=== PATIENT | female | born 1970 | race Caucasian/White ===

== ENCOUNTER 2016-06-06 12:28 | Emergency (ER) | payer OTHER ==
--- NOTE | 2016-06-06 13:15 | DIAGNOSTIC IMAGING REPORT ---
PROCEDURE: XR SHOULDER 2 OR MORE VW-LEFT INDICATION: PAIN TECHNIQUE: Three views. COMPARISON: None. FINDINGS: There is 0.5 mm osseous density overlying the lower glenoid (dystrophic calcification) which may be degenerative and incidental. Osseous structures and joint spaces are otherwise normal. IMPRESSION: 1. Minor degenerative changes. 2. Otherwise negative left shoulder. 3. Findings discussed with Dr. Silveira.
--- NOTE | 2016-06-06 13:28 | ED ORDER SUMMARY ---
..... Patient: LIS MARKS OrderSheet [facility] VisitID: [id number] [address] [place] [address] 45y, F Registration Date/Time: 06/06/2016 ORDER SHEET Weight: 49.4 kg (stated) Allergies: Codeine, Sulfa Antibiotics GENERAL ORDERS: Shoulder 2V or more Left Urgent (12:39 06/06/2016 Leilani Hope per protocol) ([facility] 12:41 Rickey Tech1) (12:57 Leilani Singh.Elisa.) MEDICATION ORDERS: IV FLUIDS: ORDER SHEET NOTES: [Electronically signed by Zeeshan Mcqueen R.N. (13:40 06/06/2016)] [Electronically signed by Deondre Silveira DO (17:33 06/06/2016)] [Electronically locked/signed by Zeeshan Mcqueen R.N. (13:40 06/06/2016)]
--- NOTE | 2016-06-06 13:28 | ED CLINICAL REPORT ---
Clinical Report - Physicians/Mid Levels [facility] [address] [place] [address] 06/06/2016 12:29 Patient: LIS MARKS Time Seen: 12:48. Arrived- By private vehicle. Historian- patient. HISTORY OF PRESENT ILLNESS Chief Complaint: UPPER EXTREMITY PAIN and NECK PAIN; PAIN IN THE LEFT SHOULDER. Severity is described as being moderate in degree. The quality is noted to be "pain". It is described as radiating to the left upper arm. Modifying factors- worsened by movement. Made better by rest. This started about 2 1/2 weeks ago and is still present. It was gradual in onset and has been waxing/waning. Symptoms located in the area of the left shoulder. No chest pain, difficulty breathing, swelling, sensory loss or motor loss. She has not had redness. Repetitive hand use at work. Patient notes the possibility of an injury. Mechanism of injury- (repetitive movements). Occurred at home and work. Similar symptoms previously: Recent medical care: Not recently seen/assessed. REVIEW OF SYSTEMS No fever, chills, headache, sore throat or cough. No skin rash, abdominal pain, nausea, vomiting or diarrhea. No black stools, difficulty with urination, urinary frequency or hematuria. The patient has had moderate neck pain (left trapezius area). No motor weakness, sensory loss, radiation to the left arm or symptom related to bladder or bowel dysfunction. All systems otherwise negative, except as recorded above. PAST HISTORY The patient's dominant hand is the right. Dysfunctional uterine bleeding. Surgeries: Laparoscopy (for endometriosis). Medications: Control Pills. Allergies: Codeine.(vomiting) Sulfa Antibiotics. SOCIAL HISTORY Smoker- current status unknown. Occasional alcohol use. History of drug use: marijuana. Is a local resident. Patient is employed. 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 ADDITIONAL NOTES The nursing notes have been reviewed. PHYSICAL EXAM Vital Signs: 06/06/2016 12:34 BP: 109/67. HR: 77. RR: 16. O2 saturation: 100%. Temp: 98.7 F. Pain level now: 11/27. Appearance: Alert. Oriented X3. Patient in moderate distress. Eyes: Eyes normal inspection. No pale conjunctivae or scleral icterus. ENT: Pharynx normal. Neck: Normal inspection. Pain in the lower posterior neck upon movement (left trapezius and left inferior cervical muscles). Neck supple. No meningeal signs, lymphadenopathy or thyromegaly. CVS: Normal heart rate and rhythm. Heart sounds normal. Respiratory: No respiratory distress. Breath sounds normal. Abdomen: Soft and nontender. No organomegaly. Back: Normal inspection. Skin: Skin intact. No cyanosis. Skin warm and dry. Normal skin color. Normal skin turgor. Skin not cool on palpation. No skin rash or diaphoresis. Extremities: Upper extremities normal to inspection. No upper extremity edema. No signs of infection present in the upper extremities. No upper extremity pulse deficit present. Upper extremity capillary refill not prolonged. No upper extremity edema. Left shoulder: moderate tenderness located in the anterior, posterior, medial and lateral aspect of the shoulder. Neurovascular intact distally. No erythema, swelling, laceration, abrasion or ecchymosis. No puncture wound, foreign body or deformity. No joint effusion or limitation in ROM. Extremities otherwise negative. Neuro: Oriented X 3. No motor deficit. No weakness. No sensory deficit. No sensory deficit. LABS, X-RAYS, AND EKG Lt Shoulder X-ray: (IMPRESSION: 1. Minor degenerative changes. 2. Otherwise negative left shoulder.). Technique: good. The X-rays were independently viewed by me, interpreted by the radiologist and discussed with the radiologist. Pulse Oximetry: 06/06/2016 12:34 O2 saturation: 100%. (FIO2 - room air). Interpretation: normal. PROGRESS AND PROCEDURES Course of Care: Not c/w cervical radiculopathy. Clear shoulder area tenderness and left trapezius muscle tenderness. No signs of infection. No indication of cord compression or signs of spinal / epidural infectious process / discitis "Allergy" to codeine was nausea / vomiting - no allergy only GI side effects. Patient/family counseled. Old ED records reviewed. Disposition: Discharged. Condition: stable. CLINICAL IMPRESSION Tendonitis in the left shoulder. Chronic substance abuse- tobacco (cigarettes), marijuana. No intoxication or anxiety. Acute cervical strain. INSTRUCTIONS Apply ice. Elevate affected areas above chest level. Limit lifting (with the left upper extremity until better). Do not work for two days. Do not smoke. Seek medical help to quit smoking. (Gentle range of motion exercises as described). Warnings: Further evaluation is necessary in order to conduct further tests (you may need an MRI and / or physical therapy if not improving). It is very important to follow up with a physician. CONTROLLED SUBSTANCE WARNINGS. GENERAL WARNINGS: Return or contact your physician immediately if your condition worsens or changes unexpectedly, if not improving as expected, or if other problems arise. Your Current Medications: CONTINUE TAKING THE FOLLOWING MEDICATIONS: Control Pills*. Prescription Medications: Hydrocodone/APAP 5mg / 325mg: take 1 orally every 8 hours as needed for pain. Dispense ten (10). No refill. Ibuprofen 600mg tablets: take 1 tablet orally every 8 hours as needed for pain. Dispense thirty (30). No refills. OTC Medications: Acetaminophen (available over the counter): take according to label instructions. Follow-up: Follow up with your doctor at [facility] in about two days. (Electronically signed by Deondre Silveira DO 06/06/2016 17:33)
--- NOTE | 2016-06-06 13:28 | ED CLINICAL REPORT ---
Clinical Report - Physicians/Mid Levels [facility] [address] [place] [address] 06/06/2016 12:29 Patient: LIS MARKS Time Seen: 12:48. Arrived- By private vehicle. Historian- patient. HISTORY OF PRESENT ILLNESS Chief Complaint: UPPER EXTREMITY PAIN and NECK PAIN; PAIN IN THE LEFT SHOULDER. Severity is described as being moderate in degree. The quality is noted to be "pain". It is described as radiating to the left upper arm. Modifying factors- worsened by movement. Made better by rest. This started about 2 1/2 weeks ago and is still present. It was gradual in onset and has been waxing/waning. Symptoms located in the area of the left shoulder. No chest pain, difficulty breathing, swelling, sensory loss or motor loss. She has not had redness. Repetitive hand use at work. Patient notes the possibility of an injury. Mechanism of injury- (repetitive movements). Occurred at home and work. Similar symptoms previously: Recent medical care: Not recently seen/assessed. REVIEW OF SYSTEMS No fever, chills, headache, sore throat or cough. No skin rash, abdominal pain, nausea, vomiting or diarrhea. No black stools, difficulty with urination, urinary frequency or hematuria. The patient has had moderate neck pain (left trapezius area). No motor weakness, sensory loss, radiation to the left arm or symptom related to bladder or bowel dysfunction. All systems otherwise negative, except as recorded above. PAST HISTORY The patient's dominant hand is the right. Dysfunctional uterine bleeding. Surgeries: Laparoscopy (for endometriosis). Medications: Control Pills. Allergies: Codeine.(vomiting) Sulfa Antibiotics. SOCIAL HISTORY Smoker- current status unknown. Occasional alcohol use. History of drug use: marijuana. Is a local resident. Patient is employed. 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 ADDITIONAL NOTES The nursing notes have been reviewed. PHYSICAL EXAM Vital Signs: 06/06/2016 12:34 BP: 109/67. HR: 77. RR: 16. O2 saturation: 100%. Temp: 98.7 F. Pain level now: 11/27. Appearance: Alert. Oriented X3. Patient in moderate distress. Eyes: Eyes normal inspection. No pale conjunctivae or scleral icterus. ENT: Pharynx normal. Neck: Normal inspection. Pain in the lower posterior neck upon movement (left trapezius and left inferior cervical muscles). Neck supple. No meningeal signs, lymphadenopathy or thyromegaly. CVS: Normal heart rate and rhythm. Heart sounds normal. Respiratory: No respiratory distress. Breath sounds normal. Abdomen: Soft and nontender. No organomegaly. Back: Normal inspection. Skin: Skin intact. No cyanosis. Skin warm and dry. Normal skin color. Normal skin turgor. Skin not cool on palpation. No skin rash or diaphoresis. Extremities: Upper extremities normal to inspection. No upper extremity edema. No signs of infection present in the upper extremities. No upper extremity pulse deficit present. Upper extremity capillary refill not prolonged. No upper extremity edema. Left shoulder: moderate tenderness located in the anterior, posterior, medial and lateral aspect of the shoulder. Neurovascular intact distally. No erythema, swelling, laceration, abrasion or ecchymosis. No puncture wound, foreign body or deformity. No joint effusion or limitation in ROM. Extremities otherwise negative. Neuro: Oriented X 3. No motor deficit. No weakness. No sensory deficit. No sensory deficit. LABS, X-RAYS, AND EKG Lt Shoulder X-ray: (IMPRESSION: 1. Minor degenerative changes. 2. Otherwise negative left shoulder.). Technique: good. The X-rays were independently viewed by me, interpreted by the radiologist and discussed with the radiologist. Pulse Oximetry: 06/06/2016 12:34 O2 saturation: 100%. (FIO2 - room air). Interpretation: normal. PROGRESS AND PROCEDURES Course of Care: Not c/w cervical radiculopathy. Clear shoulder area tenderness and left trapezius muscle tenderness. No signs of infection. No indication of cord compression or signs of spinal / epidural infectious process / discitis "Allergy" to codeine was nausea / vomiting - no allergy only GI side effects. Patient/family counseled. Old ED records reviewed. Disposition: Discharged. Condition: stable. CLINICAL IMPRESSION Tendonitis in the left shoulder. Chronic substance abuse- tobacco (cigarettes), marijuana. No intoxication or anxiety. Acute cervical strain. INSTRUCTIONS Apply ice. Elevate affected areas above chest level. Limit lifting (with the left upper extremity until better). Do not work for two days. Do not smoke. Seek medical help to quit smoking. (Gentle range of motion exercises as described). Warnings: Further evaluation is necessary in order to conduct further tests (you may need an MRI and / or physical therapy if not improving). It is very important to follow up with a physician. CONTROLLED SUBSTANCE WARNINGS. GENERAL WARNINGS: Return or contact your physician immediately if your condition worsens or changes unexpectedly, if not improving as expected, or if other problems arise. Your Current Medications: CONTINUE TAKING THE FOLLOWING MEDICATIONS: Control Pills*. Prescription Medications: Hydrocodone/APAP 5mg / 325mg: take 1 orally every 8 hours as needed for pain. Dispense ten (10). No refill. Ibuprofen 600mg tablets: take 1 tablet orally every 8 hours as needed for pain. Dispense thirty (30). No refills. OTC Medications: Acetaminophen (available over the counter): take according to label instructions. Follow-up: Follow up with your doctor at [facility] in about two days. (Electronically signed by Deondre Silveira DO 06/06/2016 17:33)
--- NOTE | 2016-06-06 13:28 | ED NURSING NOTES ---
Clinical Report - Nurses [facility] [address] [place] [address] 06/06/2016 12:29 [id number] Triage time 12:35. Acuity: LEVEL 4. Chief Complaint: LEFT UPPER EXTREMITY PAIN. 12:36 06/06/16. 12:36 06/06/16. Alert. No acute distress. ( Left neck, down left shoulder, down left arm pain. Possible injury pt is unsure. This pain is getting progressively worse.). SEPSIS SCREEN: Sepsis Screen. Negative (no infection suspected/documented). VALERIA COMA SCORE: [place] Coma Scale: 15- eyes open spontaneously (4); best verbal response- oriented x 4 (5); best motor response- obeys commands (6). --12:39 Zeeshan Mcqueen R.N. 12:34 06/06/16. BP: 109/67. HR: 77. RR: 16. O2 saturation: 100%. Temp: 98.7 F (oral). Pain level now: 11/27. --12:39 Zeeshan Mcqueen R.N. Weight: 49.4 kg stated. Height/Length: 62 inches Per Patient. BMI: 19.9. --12:36 Zeeshan Mcqueen R.N. Medications Control Pills. --12:40 Zeeshan Mcqueen R.N. The following entry was struck by Zeeshan Mcqueen R.N., 12:40 (06/06/16) Reason - other. <<STRICKEN ENTRY-- None. --12:37 Zeeshan Mcqueen R.N. --END STRIKE>>. Medication/allergy information source: the patient. --12:39 Zeeshan Mcqueen R.N. Allergies Codeine.(vomiting) --12:37 Zeeshan Mcqueen R.N. Sulfa Antibiotics. --12:37 Zeeshan Mcqueen R.N. History Arrived by private vehicle. Historian: patient. Accompanied by family. Primary physician (NONE). 12:36 06/06/16. An injury may have occurred. This occurred (Last week). 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 PAST MEDICAL HX: Tetanus status: up-to-date. Immunizations not up to date. SOCIAL HX: Current every day heavy tobacco smoker (cigarette)- less than 1 pack per day. Occasional alcohol use. History of drug use: marijuana. No infectious disease exposure. ABUSE ASSESSMENT: No report of abuse. FALL RISK ASSESSMENT: Fall risk assessment completed. No fall risk identified. NUTRITIONAL RISK ASSESSMENT: The nutritional risk assessment revealed no deficiencies. FUNCTIONAL ASSESSMENT: Functional assessment: no impairments noted. LEARNING NEEDS ASSESSMENT: The learning needs assessment revealed no barriers. SKIN INTEGRITY ASSESSMENT: Skin integrity risk assessment completed. No skin integrity risk identified. --12:39 Zeeshan Mcqueen R.N. PAST MEDICAL HX: Last normal menstrual period- MAY 04-Started, Ended MAY 04. --12:41 Zeeshan Mcqueen R.N. PROBLEMS: Gastroenteritis. Diarrhea. Abdominal Pain. Vomiting. UTI - Urinary Tract Infection. Immunizations. Kidney Infection. Endometriosis. Dental Pain. --12:37 Zeeshan Mcqueen R.N. ADDITIONAL SURGERIES: Endometriosis . Laparoscopy. --12:37 Zeeshan Mcqueen R.N. Assessment 12:36 06/06/16. --12:39 Zeeshan Mcqueen R.N. Interventions 12:36 06/06/16. 12:36 06/06/16. ID and allergy band on patient. To treatment room. --12:39 Zeeshan Mcqueen R.N. PHYSICAL ASSESSMENT 12:38 06/06/16. Ambulatory to room. GENERAL / NEURO / PSYCH: Oriented X 4. Alert. Appears in pain. EXTREMITIES: Extremities do not exhibit normal ROM. Neuro-vascular status intact to the extremity. No upper extremity edema. Left shoulder: tenderness. Left arm: tenderness. SKIN: Skin is warm and dry. --12:38 Zeeshan Mcqueen R.N. NURSING PROGRESS NOTES 12:39 06/06/16. The plan of care for this patient has been created. Extremity elevated. Neuro-vascular extremity check. Patient gowned. Reassurance given. Two patient identifiers checked. Call light placed in reach. Side rails up x 2. Bed placed in lowest position. Brakes of bed on. Brakes of chair on. --12:39 Zeeshan Mcqueen R.N. 12:39 06/06/16. Patient ready for evaluation- chart flagged and notification provided. --12:39 Zeeshan Mcqueen R.N. 12:59 06/06/16. ( Shoulder x-ray completed). --12:59 Zeeshan Mcqueen R.N. 13:02 06/06/16. ( Ice pack given to patient for left shoulder). --13:02 Zeeshan Mcqueen R.N. DISPOSITION / DISCHARGE 13:32 06/06/16. Condition at departure: improved. The goals identified in the patient's plan of care were met. No learning barriers present. Discharge instructions provided and reviewed with the patient. Reviewed warnings. Reviewed medication(s). Treatments reviewed. Patient verbalized understanding. Written instructions provided in Thai. The patient was discharged by the physician. She was discharged home and accompanied by family. She left the Emergency Department ambulatory and via private vehicle. Family member driving. FALL RISK ASSESSMENT: Fall risk assessment completed. No fall risk identified. --13:32 Zeeshan Mcqueen R.N. 13:31 06/06/16. BP: 113/72. HR: 80. RR: 14. O2 saturation: 100% on room air. Temp: 98.1 F (oral). --13:32 Zeeshan Mcqueen R.N. 13:32 06/06/16. Departure time: 13:32. --13:32 Zeeshan Mcqueen R.N. Locked/Released at 06/06/2016 13:40 by Zeeshan Mcqueen R.N.
--- NOTE | 2016-06-06 13:28 | ED ORDER SUMMARY ---
..... Patient: LIS MARKS OrderSheet [facility] VisitID: [id number] [address] [place] [address] 45y, F Registration Date/Time: 06/06/2016 ORDER SHEET Weight: 49.4 kg (stated) Allergies: Codeine, Sulfa Antibiotics GENERAL ORDERS: Shoulder 2V or more Left Urgent (12:39 06/06/2016 Leilani Hope per protocol) ([facility] 12:41 Rickey Tech1) (12:57 Leilani Singh.Elisa.) MEDICATION ORDERS: IV FLUIDS: ORDER SHEET NOTES: [Electronically signed by Zeeshan Mcqueen R.N. (13:40 06/06/2016)] [Electronically signed by Deondre Silveira DO (17:33 06/06/2016)] [Electronically locked/signed by Zeeshan Mcqueen R.N. (13:40 06/06/2016)]
--- NOTE | 2016-06-06 13:28 | ED NURSING NOTES ---
Clinical Report - Nurses [facility] [address] [place] [address] 06/06/2016 12:29 [id number] Triage time 12:35. Acuity: LEVEL 4. Chief Complaint: LEFT UPPER EXTREMITY PAIN. 12:36 06/06/16. 12:36 06/06/16. Alert. No acute distress. ( Left neck, down left shoulder, down left arm pain. Possible injury pt is unsure. This pain is getting progressively worse.). SEPSIS SCREEN: Sepsis Screen. Negative (no infection suspected/documented). VALERIA COMA SCORE: [place] Coma Scale: 15- eyes open spontaneously (4); best verbal response- oriented x 4 (5); best motor response- obeys commands (6). --12:39 Zeeshan Mcqueen R.N. 12:34 06/06/16. BP: 109/67. HR: 77. RR: 16. O2 saturation: 100%. Temp: 98.7 F (oral). Pain level now: 11/27. --12:39 Zeeshan Mcqueen R.N. Weight: 49.4 kg stated. Height/Length: 62 inches Per Patient. BMI: 19.9. --12:36 Zeeshan Mcqueen R.N. Medications Control Pills. --12:40 Zeeshan Mcqueen R.N. The following entry was struck by Zeeshan Mcqueen R.N., 12:40 (06/06/16) Reason - other. <<STRICKEN ENTRY-- None. --12:37 Zeeshan Mcqueen R.N. --END STRIKE>>. Medication/allergy information source: the patient. --12:39 Zeeshan Mcqueen R.N. Allergies Codeine.(vomiting) --12:37 Zeeshan Mcqueen R.N. Sulfa Antibiotics. --12:37 Zeeshan Mcqueen R.N. History Arrived by private vehicle. Historian: patient. Accompanied by family. Primary physician (NONE). 12:36 06/06/16. An injury may have occurred. This occurred (Last week). 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 PAST MEDICAL HX: Tetanus status: up-to-date. Immunizations not up to date. SOCIAL HX: Current every day heavy tobacco smoker (cigarette)- less than 1 pack per day. Occasional alcohol use. History of drug use: marijuana. No infectious disease exposure. ABUSE ASSESSMENT: No report of abuse. FALL RISK ASSESSMENT: Fall risk assessment completed. No fall risk identified. NUTRITIONAL RISK ASSESSMENT: The nutritional risk assessment revealed no deficiencies. FUNCTIONAL ASSESSMENT: Functional assessment: no impairments noted. LEARNING NEEDS ASSESSMENT: The learning needs assessment revealed no barriers. SKIN INTEGRITY ASSESSMENT: Skin integrity risk assessment completed. No skin integrity risk identified. --12:39 Zeeshan Mcqueen R.N. PAST MEDICAL HX: Last normal menstrual period- MAY 04-Started, Ended MAY 04. --12:41 Zeeshan Mcqueen R.N. PROBLEMS: Gastroenteritis. Diarrhea. Abdominal Pain. Vomiting. UTI - Urinary Tract Infection. Immunizations. Kidney Infection. Endometriosis. Dental Pain. --12:37 Zeeshan Mcqueen R.N. ADDITIONAL SURGERIES: Endometriosis . Laparoscopy. --12:37 Zeeshan Mcqueen R.N. Assessment 12:36 06/06/16. --12:39 Zeeshan Mcqueen R.N. Interventions 12:36 06/06/16. 12:36 06/06/16. ID and allergy band on patient. To treatment room. --12:39 Zeeshan Mcqueen R.N. PHYSICAL ASSESSMENT 12:38 06/06/16. Ambulatory to room. GENERAL / NEURO / PSYCH: Oriented X 4. Alert. Appears in pain. EXTREMITIES: Extremities do not exhibit normal ROM. Neuro-vascular status intact to the extremity. No upper extremity edema. Left shoulder: tenderness. Left arm: tenderness. SKIN: Skin is warm and dry. --12:38 Zeeshan Mcqueen R.N. NURSING PROGRESS NOTES 12:39 06/06/16. The plan of care for this patient has been created. Extremity elevated. Neuro-vascular extremity check. Patient gowned. Reassurance given. Two patient identifiers checked. Call light placed in reach. Side rails up x 2. Bed placed in lowest position. Brakes of bed on. Brakes of chair on. --12:39 Zeeshan Mcqueen R.N. 12:39 06/06/16. Patient ready for evaluation- chart flagged and notification provided. --12:39 Zeeshan Mcqueen R.N. 12:59 06/06/16. ( Shoulder x-ray completed). --12:59 Zeeshan Mcqueen R.N. 13:02 06/06/16. ( Ice pack given to patient for left shoulder). --13:02 Zeeshan Mcqueen R.N. DISPOSITION / DISCHARGE 13:32 06/06/16. Condition at departure: improved. The goals identified in the patient's plan of care were met. No learning barriers present. Discharge instructions provided and reviewed with the patient. Reviewed warnings. Reviewed medication(s). Treatments reviewed. Patient verbalized understanding. Written instructions provided in Bots[place]an. The patient was discharged by the physician. She was discharged home and accompanied by family. She left the Emergency Department ambulatory and via private vehicle. Family member driving. FALL RISK ASSESSMENT: Fall risk assessment completed. No fall risk identified. --13:32 Zeeshan Mcqueen R.N. 13:31 06/06/16. BP: 113/72. HR: 80. RR: 14. O2 saturation: 100% on room air. Temp: 98.1 F (oral). --13:32 Zeeshan Mcqueen R.N. 13:32 06/06/16. Departure time: 13:32. --13:32 Zeeshan Mcqueen R.N. Locked/Released at 06/06/2016 13:40 by Zeeshan Mcqueen R.N.
--- NOTE | 2016-06-06 17:33 | ED MAR SUMMARY ---
..... Medication Administration Record [facility] [address] [place], [place] [id number] Patient: LIS MARKS Conrad Palacio Visit ID: [id number] 45y, F Weight: 49.4 kg Height/Length: 62 in BMI: 19.9 ALLERGIES: Sulfa Antibiotics, Codeine
--- NOTE | 2016-06-06 17:33 | ED DISCHARGE INSTRUCTIONS ---
Patient: LIS MARKS General Instructions [facility] VisitID: [id number] [place] [address] 45y, F Registration Date/Time: 06/06/2016 Tendonitis in the left shoulder. Chronic substance abuse- tobacco (cigarettes), marijuana. No intoxication or anxiety. Acute cervical strain. INSTRUCTIONS Apply ice. Elevate affected areas above chest level. Limit lifting (with the left upper extremity until better). Do not work for two days. Do not smoke. Seek medical help to quit smoking. (Gentle range of motion exercises as described). Warnings: Further evaluation is necessary in order to conduct further tests (you may need an MRI and / or physical therapy if not improving). It is very important to follow up with a physician. CONTROLLED SUBSTANCE WARNINGS. GENERAL WARNINGS: Return or contact your physician immediately if your condition worsens or changes unexpectedly, if not improving as expected, or if other problems arise. Your Current Medications: CONTINUE TAKING THE FOLLOWING MEDICATIONS: Control Pills*. Prescription Medications: Hydrocodone/APAP 5mg / 325mg: take 1 orally every 8 hours as needed for pain. Dispense ten (10). No refill. Ibuprofen 600mg tablets: take 1 tablet orally every 8 hours as needed for pain. Dispense thirty (30). No refills. OTC Medications: Acetaminophen (available over the counter): take according to label instructions. Follow-up: Follow up with your doctor at [facility] in about two days. ADDITIONAL INFORMATION Tendonitis A tendon is the thick fibrous cord that joins muscle to bone and causes joints to move. Tendonitis is inflammation of the tendon which may be due to overuse, injury or infection. This usually involves the shoulders, forearm, wrist, hands and foot. Symptoms include local pain, swelling and tenderness to the touch. Movement of the involved joint increases the pain. Tendonitis requires about 4 to 6 weeks to heal. It is treated by preventing motion of the tendon with a splint or brace and use of anti-inflammatory medicine. Home Care: Apply an ice pack (ice cubes in a plastic bag, wrapped in a towel) over the injured area for 20 minutes every 1-2 hours the first day for pain relief. Continue this 3-4 times a day until the pain and swelling goes away. Rest the inflamed joint and protect it from movement. You may use ibuprofen (Motrin, Advil) or naproxen (Aleve, Naprosyn) to treat pain and inflammation, unless another medicine was prescribed. If you can't take these medicines, acetaminophen (Tylenol) may help with the pain, but does not treat inflammation. [NOTE : If you have chronic liver or kidney disease or ever had a stomach ulcer or GI bleeding, talk with your doctor before using these medicines.] As your symptoms improve, begin gradual motion at the involved joint. Follow Up With Your Doctor If Not Improving After The First Five Days Of Treatment. Get Prompt Medical Attention If Any Of The Following Occur: Redness over the painful area Increasing pain or swelling at the joint Fever of 100.4F (38C) or higher, or as directed by your healthcare provider Marijuana Abuse Marijuana is the most widely used illegal drug in the [place]. It is called by various names such as pot, weed, blunts, grass, reefer, ganja, hash, hashish. It is usually smoked but can be mixed with foods or brewed as a tea. It is sometimes sold with PCP (Charanjit Dust) or amphetamine mixed in it. These drugs can cause other harmful side effects. Marijuana can cause the following effects: Changes in mood (stimulated, happy, drowsy, depressed, paranoid) Hallucinations Increased heart rate and blood pressure Increased appetite Time distortion, difficulty concentrating, impaired memory Lung damage (similar to cigarettes with chronic cough, wheezing, frequent colds and bronchitis) You can become psychologically dependent on marijuana. That means the craving to use the drug is emotional or psychological rather than due to physical withdrawal. Is Marijuana Running Your Life? Here are some of the signs: Relying on marijuana to feel good, forget problems, deal with stress or to relax Wanting to be alone most of the time or only with others who use drugs Losing interest in things that used to be important Changes in school or job performance or attendance Spending a lot of time thinking about how to get marijuana Stealing or selling your things so you can buy marijuana Unable to stop using even though you may want to quit Increasing anxiety, anger,or depression Sleeping too much, changes in eating habits (weight loss or gain) Needing to use more to get the same effect Home Care Once you have become addicted to any drug, quitting is hard to do. Most people find they can't quit without help. So, dont try to do this alone. Talk to someone you trust who can support you. Seek professional help. Avoid people and places where drugs are used. That only increases the temptation to use. Follow Up with your doctor or as advised by our staff. For more information or a referral to a treatment center in your area, contact: Your local mental health center or the National Alcohol and Substance Abuse Information Center (244)-602-6987 www.addictionNetlog.[place] National [place] on Alcoholism and Drug Dependence 453-302-XYNR www.ncadd.org Marijuana Anonymous 295-099-6700 www.marijuana-anonymous.org Get Prompt Medical Attention if any of the following occur: You feel extreme depression, fear, anxiety, or anger toward yourself or others You feel out of control You feel that you may try to harm yourself or another Neck Pain [No Trauma] There are several possible causes of neck pain without injury: You can get a minor ligament sprain or muscle strain from a sudden minor neck movement. Sleeping with your neck in an awkward position can also cause this. Some persons respond to emotional stress by tensing the muscles of their neck, shoulders and upper back. Chronic spasm in these muscles can cause neck pain and sometimes headaches. Gradualwear and tearof the joints in the spine can cause degenerative arthritis.This can be a source of occasional or chronic neck pain. With aging or repeated small injuries to the neck, the spinal disks (the cushions between each spinal bone) may bulge and put pressure on a nearby spinal nerve. This causes tingling, pain or numbness spreading from the neck to the shoulder, arm or hand on one side. Acute neck pain usually gets better in one to two weeks. Neck pain related to disk disease, arthritis in the spinal joints or spinal stenosis (narrowing of the spinal canal) can become chronic and last for months or years. Unless you had a forceful physical injury (for example, a car accident or fall), X-rays are usually not ordered for the initial evaluation of neck pain. If pain continues and does not respond to medical treatment, x-rays and other tests may be performed at a later time. Home Care: Rest and relax the muscles. Use a comfortable pillow that supports the head and keeps the spine in a neutral position. The position of the head should not be tilted forward or backward. A rolled up towel may help for a custom fit. Some persons find relief with heat (hot shower, hot bath or heating pad) and massage, while others prefer cold packs (crushed or cubed ice in a plastic bag, wrapped in a towel) . Try both and use the method that feels best for 20 minutes several times a day. You may use acetaminophen (Tylenol) or ibuprofen (Motrin, Advil) to control pain, unless another medicine was prescribed. [ NOTE : If you have chronic liver or kidney disease or ever had a stomach ulcer or GI bleeding, talk with your doctor before using these medicines.] Follow Up with your physician or this facility if your symptoms do not show signs of improvement after one week. Physical therapy or further tests may be needed. [NOTE: A radiologist will review any X-rays or CT scans that were taken. We will notify you of any new findings that may affect your care.] Get Prompt Medical Attention if any of the following occur: Pain becomes worse or spreads into one or both arms Weakness or numbness in one or both arms Increasing headache Neck swelling, difficulty or painful swallowing Fever of 100.4F (38C) or higher, or as directed by your healthcare provider How To Quit Smoking Smoking is one of the hardest habits to break. About half of all those who have ever smoked have been able to quit, and most of those (about 70%) who still smoke want to quit. Here are some of the best ways to stop smoking. Keep Trying: It takes most smokers about 8 tries before they are finally able to fully quit. So, the more often you try and fail, the better your chance of quitting the next time! So, don't give up! Go Cold [place]: Most ex-smokers quit cold turkey. Trying to cut back gradually doesn't seem to work as well, perhaps because it continues the smoking habit. Also, it is possible to fool yourself by inhaling more while smoking fewer cigarettes. This results in the same amount of nicotine in your body! Get Support: Support programs can make an important difference, especially for the heavy smoker. These groups offer lectures, methods to change your behavior and peer support. Call the free national Quitline for more information. 867-FQSA-BYL (796-525-6685). Low-cost or free programs are offered by many hospitals, local chapters of the [place] [employer] (066-725-8412) and the [place] [employer] (431-919-1688). Support at home is important too. Non-smokers can help by offering praise and encouragement. If the smoker fails to quit, encourage them to try again! Ehmv-Xyz-Fgvylyx Medicines: For those who can't quit on their own, Nicotine Replacement Therapy (NRT) may make quitting much easier. Certain aids such as the nicotine patch, gum and lozenge are available without a prescription. However, it is best to use these under the guidance of your doctor. The skin patch provides a steady supply of nicotine to the body. Nicotine gum and lozenge gives temporary bursts of low levels of nicotine. Both methods take the edge off the craving for cigarettes. WARNING: If you feel symptoms of nicotine overdose, such as nausea, vomiting, dizziness, weakness, or fast heartbeat, stop using these and see your doctor. Prescription Medicines: After evaluating your smoking patterns and prior attempts at quitting, your doctor may offer a prescription medicine such as bupropion (Zyban, Wellbutrin), varenicline (Chantix, Champix), a niocotine inhaler or nasal spray. Each has its unique advantage and side effects which your doctor can review with you. Health Benefits Of Quitting: The benefits of quitting start right away and keep improving the longer you go without smokin minutes: blood pressure and pulse return to normal 8 hours: oxygen levels return to normal 2 days: ability to smell and taste begins to improve as damaged nerves start to regrow 2-3 weeks: circulation and lung function improves 1-9 months: decreased cough, congestion and shortness of breath; less tired 1 year: risk of heart attack decreases by half 5 years: risk of lung cancer decreases by half; risk of stroke becomes the same as a non-smoker For information about how to quit smoking, visit the following links: National Cancer [place] , Clearing the Air, Quit Smoking Today - an online booklet. http://www.smokefree.gov/pubs/clearing_the_air.pdf Smokefree.gov http://smokefree.gov/ QuitNet http://www.quitnet.com/ Hydrocodone Bitartrate, Acetaminophen Oral tablet What is this medicine? ACETAMINOPHEN; HYDROCODONE (a set a ARBAELLA emery fen; shruti droe KOE done) is a pain reliever. It is used to treat mild to moderate pain. How should I use this medicine? Take this medicine by mouth. Swallow it with a full glass of water. Follow the directions on the prescription label. If the medicine upsets your stomach, take the medicine with food or milk. Do not take more than you are told to take. Talk to your patient service technician pst regarding the use of this medicine in children. This medicine is not approved for use in children. What side effects may I notice from receiving this medicine? Side effects that you should report to your doctor or health critical care paramedic as soon as possible: allergic reactions like skin rash, itching or hives, swelling of the face, lips, or tongue breathing problems confusion feeling faint or lightheaded, falls stomach pain yellowing of the eyes or skin Side effects that usually do not require medical attention (report to your doctor or health critical care paramedic if they continue or are bothersome): nausea, vomiting stomach upset What may interact with this medicine? alcohol antihistamines isoniazid medicines for depression, anxiety, or psychotic disturbances medicines for sleep muscle relaxants naltrexone narcotic medicines (opiates) for pain phenobarbital ritonavir tramadol What if I miss a dose? If you miss a dose, take it as soon as you can. If it is almost time for your next dose, take only that dose. Do not take double or extra doses. Where should I keep my medicine? Keep out of the reach of children. This medicine can be abused. Keep your medicine in a safe place to protect it from theft. Do not share this medicine with anyone. Selling or giving away this medicine is dangerous and against the law. Store at room temperature between 15 and 30 degrees C (59 and 86 degrees F). Protect from light. Keep container tightly closed. Throw away any unused medicine after the expiration date. Discard unused medicine and used packaging carefully. Pets and children can be harmed if they find used or lost packages. What should I tell my health care provider before I take this medicine? They need to know if you have any of these conditions: brain tumor Crohn's disease, inflammatory bowel disease, or ulcerative colitis drink more than 3 alcohol-containing drinks per day drug abuse or addiction head injury heart or circulation problems kidney disease or problems going to the bathroom liver disease lung disease, asthma, or breathing problems an unusual or allergic reaction to acetaminophen, hydrocodone, other opioid analgesics, other medicines, foods, dyes, or preservatives or trying to get breast-feeding What should I watch for while using this medicine? Tell your doctor or health critical care paramedic if your pain does not go away, if it gets worse, or if you have new or a different type of pain. You may develop tolerance to the medicine. Tolerance means that you will need a higher dose of the medicine for pain relief. Tolerance is normal and is expected if you take the medicine for a long time. Do not suddenly stop taking your medicine because you may develop a severe reaction. Your body becomes used to the medicine. This does NOT mean you are addicted. Addiction is a behavior related to getting and using a drug for a non-medical reason. If you have pain, you have a medical reason to take pain medicine. Your doctor will tell you how much medicine to take. If your doctor wants you to stop the medicine, the dose will be slowly lowered over time to avoid any side effects. You may get drowsy or dizzy when you first start taking the medicine or change doses. Do not drive, use machinery, or do anything that may be dangerous until you know how the medicine affects you. Stand or sit up slowly. There are different types of narcotic medicines (opiates) for pain. If you take more than one type at the same time, you may have more side effects. Give your health care provider a list of all medicines you use. Your doctor will tell you how much medicine to take. Do not take more medicine than directed. Call emergency for help if you have problems breathing. The medicine will cause constipation. Try to have a bowel movement at least every 2 to 3 days. If you do not have a bowel movement for 3 days, call your doctor or health critical care paramedic. Too much acetaminophen can be very dangerous. Do not take Tylenol (acetaminophen) or medicines that contain acetaminophen with this medicine. Many non-prescription medicines contain acetaminophen. Always read the labels carefully. Ibuprofen Oral tablet What is this medicine? IBUPROFEN (eye BYOO proe fen) is a non-steroidal anti-inflammatory drug (NSAID). It is used for dental pain, fever, headaches or migraines, osteoarthritis, rheumatoid arthritis, or painful monthly periods. It can also relieve minor aches and pains caused by a cold, flu, or sore throat. How should I use this medicine? Take this medicine by mouth with a glass of water. Follow the directions on the prescription label. Take this medicine with food if your stomach gets upset. Try to not lie down for at least 10 minutes after you take the medicine. Take your medicine at regular intervals. Do not take your medicine more often than directed. A special MedGuide will be given to you by the pharmacist with each prescription and refill. Be sure to read this information carefully each time. Talk to your patient service technician pst regarding the use of this medicine in children. Special care may be needed. What side effects may I notice from receiving this medicine? Side effects that you should report to your doctor or health critical care paramedic as soon as possible: allergic reactions like skin rash, itching or hives, swelling of the face, lips, or tongue black or bloody stools, blood in the urine or in vomit breathing problems changes in vision chest pain general ill feeling or flu-like symptoms nausea or vomiting redness, blistering, peeling or loosening of the skin, including inside the mouth slurred speech or weakness on one side of the body stomach pain unexplained weight gain or swelling unusually weak or tired yellowing of eyes or skin Side effects that usually do not require medical attention (report to your doctor or health critical care paramedic if they continue or are bothersome): constipation or diarrhea dizziness gas or heartburn stomach upset What may interact with this medicine? Do not take this medicine with any of the following medications: cidofovir ketorolac methotrexate pemetrexed This medicine may also interact with the following medications: alcohol aspirin diuretics lithium other drugs for inflammation like prednisone warfarin What if I miss a dose? If you miss a dose, take it as soon as you can. If it is almost time for your next dose, take only that dose. Do not take double or extra doses. Where should I keep my medicine? Keep out of the reach of children. Store at room temperature between 15 and 30 degrees C (59 and 86 degrees F). Keep container tightly closed. Throw away any unused medicine after the expiration date. What should I tell my health care provider before I take this medicine? They need to know if you have any of these conditions: asthma cigarette smoker drink more than 3 alcohol containing drinks a day heart disease or circulation problems such as heart failure or leg edema (fluid retention) high blood pressure kidney disease liver disease stomach bleeding or ulcers an unusual or allergic reaction to ibuprofen, aspirin, other NSAIDS, other medicines, foods, dyes, or preservatives or trying to get breast-feeding What should I watch for while using this medicine? Tell your doctor or healthcare professional if your symptoms do not start to get better or if they get worse. This medicine does not prevent heart attack or stroke. In fact, this medicine may increase the chance of a heart attack or stroke. The chance may increase with longer use of this medicine and in people who have heart disease. If you take aspirin to prevent heart attack or stroke, talk with your doctor or health critical care paramedic. Do not take other medicines that contain aspirin, ibuprofen, or naproxen with this medicine. Side effects such as stomach upset, nausea, or ulcers may be more likely to occur. Many medicines available without a prescription should not be taken with this medicine. This medicine can cause ulcers and bleeding in the stomach and intestines at any time during treatment. Ulcers and bleeding can happen without warning symptoms and can cause . To reduce your risk, do not smoke cigarettes or drink alcohol while you are taking this medicine. You may get drowsy or dizzy. Do not drive, use machinery, or do anything that needs mental alertness until you know how this medicine affects you. Do not stand or sit up quickly, especially if you are an older patient. This reduces the risk of dizzy or fainting spells. This medicine can cause you to bleed more easily. Try to avoid damage to your teeth and gums when you brush or floss your teeth. Acetaminophen Oral tablet What is this medicine? ACETAMINOPHEN (a set a ARABELLA emery fen) is a pain reliever. It is used to treat mild pain and fever. How should I use this medicine? Take this medicine by mouth with a glass of water. Follow the directions on the package or prescription label. Take your medicine at regular intervals. Do not take your medicine more often than directed. Talk to your patient service technician pst regarding the use of this medicine in children. While this drug may be prescribed for children as young as 6 years of age for selected conditions, precautions do apply. What side effects may I notice from receiving this medicine? Side effects that you should report to your doctor or health critical care paramedic as soon as possible: allergic reactions like skin rash, itching or hives, swelling of the face, lips, or tongue breathing problems fever or sore throat redness, blistering, peeling or loosening of the skin, including inside the mouth trouble passing urine or change in the amount of urine unusual bleeding or bruising unusually weak or tired yellowing of the eyes or skin Side effects that usually do not require medical attention (report to your doctor or health critical care paramedic if they continue or are bothersome): headache nausea, stomach upset What may interact with this medicine? alcohol imatinib isoniazid other medicines with acetaminophen What if I miss a dose? If you miss a dose, take it as soon as you can. If it is almost time for your next dose, take only that dose. Do not take double or extra doses. Where should I keep my medicine? Keep out of reach of children. Store at room temperature between 20 and 25 degrees C (68 and 77 degrees F). Protect from moisture and heat. Throw away any unused medicine after the expiration date. What should I tell my health care provider before I take this medicine? They need to know if you have any of these conditions: if you frequently drink alcohol containing drinks liver disease an unusual or allergic reaction to acetaminophen, other medicines, foods, dyes or preservatives or trying to get breast-feeding What should I watch for while using this medicine? Tell your doctor or health critical care paramedic if the pain lasts more than 10 days (5 days for children), if it gets worse, or if there is a new or different kind of pain. Also, check with your doctor if a fever lasts for more than 3 days. Do not take other medicines that contain acetaminophen with this medicine. Always read labels carefully. If you have questions, ask your doctor or pharmacist. If you take too much acetaminophen get medical help right away. Too much acetaminophen can be very dangerous and cause liver damage. Even if you do not have symptoms, it is important to get help right away. You have been given the following additional information: Tendonitis Marijuana Abuse Neck Pain, No Trauma Smoking Cessation Hydrocodone Bitartrate, Acetaminophen Oral tablet Ibuprofen Oral tablet Acetaminophen Oral tablet Limit lifting (with the left upper extremity until better). Do not work for two days. (Electronically signed by Deondre Silveira DO 06/06/2016 17:33)
--- NOTE | 2016-06-06 17:33 | ED MED RECONCILIATION SUMMARY ---
Patient: LIS MARKS Medication Reconciliation Report [facility] VisitID: [id number] [address] [place] [address] 45y, F Registration Date/Time: 06/06/2016 Weight: 49.4 kg Height/Length: 62 in. BMI: 19.9 ALLERGIES: Codeine, Sulfa Antibiotics The patient's Home Medications are listed below: CONTINUE TAKING THE FOLLOWING MEDICATIONS: Control Pills The source(s) of the original Home Medication information: patient The following Medications were given to the patient in the Emergency Department: None. The following Medications were prescribed to the patient: Acetaminophen (available over the counter): take according to label instructions. -- Deondre Silveira DO Hydrocodone/APAP 5mg / 325mg: take 1 orally every 8 hours as needed for pain. Dispense ten (10). No refill. -- Deondre Silveira DO Ibuprofen 600mg tablets: take 1 tablet orally every 8 hours as needed for pain. Dispense thirty (30). No refills. -- Deondre Silveira DO
--- NOTE | 2016-06-06 17:33 | ED MAR SUMMARY ---
..... Medication Administration Record [facility] [address] [place], [place] [id number] Patient: LIS MARKS Conrad Palacio Visit ID: [id number] 45y, F Weight: 49.4 kg Height/Length: 62 in BMI: 19.9 ALLERGIES: Sulfa Antibiotics, Codeine
--- NOTE | 2016-06-06 17:33 | ED MED RECONCILIATION SUMMARY ---
Patient: LIS MARKS Medication Reconciliation Report [facility] VisitID: [id number] [address] [place] [address] 45y, F Registration Date/Time: 06/06/2016 Weight: 49.4 kg Height/Length: 62 in. BMI: 19.9 ALLERGIES: Codeine, Sulfa Antibiotics The patient's Home Medications are listed below: CONTINUE TAKING THE FOLLOWING MEDICATIONS: Control Pills The source(s) of the original Home Medication information: patient The following Medications were given to the patient in the Emergency Department: None. The following Medications were prescribed to the patient: Acetaminophen (available over the counter): take according to label instructions. -- Deondre Silveira DO Hydrocodone/APAP 5mg / 325mg: take 1 orally every 8 hours as needed for pain. Dispense ten (10). No refill. -- Deondre Silveira DO Ibuprofen 600mg tablets: take 1 tablet orally every 8 hours as needed for pain. Dispense thirty (30). No refills. -- Deondre Silveira DO
== END 2016-06-06 13:32 | disposition home or self-care (01) ==
LOC: ED SRH 12:28
DX: S16.1XXA Strain of muscle, fascia and tendon at neck level, initial encounter (principal); X50.3XXA Overexertion from repetitive movements, initial encounter; Y93.89 Activity, other specified; Y92.512 Supermarket, store or market as the place of occurrence of the external cause; Y99.0 Civilian activity done for income or pay; M75.92 Shoulder lesion, unspecified, left shoulder; F12.10 Cannabis abuse, uncomplicated; F17.210 Nicotine dependence, cigarettes, uncomplicated; Z88.2 Allergy status to sulfonamides; Z88.5 Allergy status to narcotic agent